=== PATIENT | female | born 1980 | race Caucasian/White ===

== ENCOUNTER → 2021-07-10 07:55 | Outpatient (CLI) | payer OTHER, SELFPAY ==
[2021-07-10 19:08] LABS: SARS-CoV-2 RNA PCR Negative
== END ==
PROVIDERS: PCP Internal Medicine; Visit Provider Internal Medicine
DX: R68.89 Other general symptoms and signs (principal); Z20.822 Contact with and (suspected) exposure to COVID-19
CPT/HCPCS: C9803; U0003; U0005

== ENCOUNTER 2024-05-25 14:42 | Emergency (ER) | payer OTHER, SELFPAY ==
[2024-05-25 14:53] VITALS: BP 103/76; PULSE 87; RESP 16; TEMP 37.7; O2SAT 99
--- NOTE | 2024-05-25 15:09 | ED_ITS ---
HPI - URI/Sore Throat General Chief Complaint: Upper Respiratory Infection Stated Complaint: HEADACHE/HOT & COLD/COUGH/TIGHT CHEST Time Seen by Provider: 05/25/24 15:09 Source: patient, RN notes reviewed and old records reviewed Mode of arrival: ambulatory Limitations: no limitations History of Present Illness HPI Narrative: 43 year old female who presents to express care with complaints of feeling hot and cold, having chills and bad headache with cough with some tightness of chest and body aches since last night.Patient reports that she has taken some Ibuprofen for her headache and body aches. Patient reports that10 year old child did have a lot of coughing last week MD elicited complaint: cough, nasal congestion and other (headache, body aches) Pertinent past history: pneumonia and other (congenital heart defect with repair) Onset (ago): day(s) (since last night) Consistency: progressively worsening Pain scale (0-10): 3 Able to tolerate fluids by mouth: Yes Treatments prior to arrival: ibuprofen Related Data Home Medications ?Medication ?Instructions ?Recorded ?Confirmed ?Last Taken ?Type drospirenone 3 mg-ethinyl 1 tablet PO DAILY 08/23/20 08/23/20 Unknown History estradiol 0.02 mg tablet (ALLIE (28)) Allergies Allergy/AdvReac Type Severity Reaction Status Date / Time No Known Allergies Allergy Unverified 05/25/24 15:20 Review of Systems Review of Systems: CONSTITUTIONAL: Reports malaise, chills, sweats, no known fever. EYES: Denies visual changes, redness, or discharge. ENT: Reports rhinorrhea, congestion, no sinus pain,no otalgia and no sore throat. CARDIOVASCULAR: Denies chest pain, palpitations, or edema. RESPIRATORY: Reports cough.? Denies dyspnea.some tightness in chest with cough GASTROINTESTINAL: Denies abdominal pain, nausea, vomiting, diarrhea SKIN: Denies rash or itching. MUSCULOSKELETAL:Reports myalgia. NEUROLOGIC: Reports headache. All systems reviewed & are unremarkable except as noted in HPI and below [facility] Past Medical History Medical History (Updated 05/26/24 @ 00:03 by Francie Patel) Acute pharyngitis, unspecified Strain of right quadriceps muscle, fascia and tendon, initial encounter Surgical History Surgical History (Updated 05/25/24 @ 15:21 by Suzette Hampton NP) History of open heart surgery repair of congenital heart defect Family History Family History Sibling Patient's brother is in good health Social History Social History (Updated 05/27/24 @ 07:52 by Suzette Hampton NP) Smoking status: Never smoker Alcohol intake: current Alcohol use details: social Substance use type: does not use Living arrangements: with family Gender identity (if verbalized by the patient): Female Comments At time of signature, agree with nursing past medical, surgical, social and family history. There is no relevant family history pertinent to the presenting complaint Exam Narrative: GENERAL: Well-appearing, well-nourished, and in no acute distress. HEAD: Normocephalic EYES: PERRLA, conjunctivae clear ENT: Nares clear, turbinates edematous and erythematous, clear discharge,sinus pressure and headache. Mucous membranes moist. TM pearly travis with dull light reflex bilaterally; no tragal tenderness. Oropharynx erythematous without lesions. Tonsils not enlarged and without exudate, no drooling, no hoarseness, no trismus, uvula midline.post nasal drainage. NECK: Supple. No lymphadenopathy CHEST: Clear to auscultation, breath sounds equal. No wheezing, rhonchi, rales, or stridor. No respiratory distress, speaks in full sentences.cough SAO2 99% on room air HEART: Regular rate and rhythm. No murmur heard. SKIN: Warm, dry, no rash. NEURO: Alert and oriented x3. PSYCH: Normal mood and affect Course Course Emergency Course: Patient is aware of diagnosis, understands and agrees to treatment plan.? Anticipatory guidance given.? Patient agrees to follow-up as directed and is aware of reasons to seek care at the emergency department. Portions of this record may have been created with voice recognition software Level of Care: Express Care Visit Vital Signs Vital signs: Vital Signs Temperature 37.7 C H 05/25/24 14:53 Pulse Rate 87 05/25/24 14:53 Respiratory Rate 16 05/25/24 14:53 Blood Pressure 103/76 05/25/24 14:53 Pulse Oximetry 99 05/25/24 14:53 Temperature 37.7 C H 05/25/24 14:53 Pulse Rate 87 05/25/24 14:53 Respiratory Rate 16 05/25/24 14:53 Blood Pressure 103/76 05/25/24 14:53 Pulse Oximetry 99 05/25/24 14:53 Reviewed MDM - URI/Sore Throat MDM Narrative Medical decision making narrative: Differential diagnosis considered: Mohan virus, strep pharyngitis, allergic rhinitis, upper respiratory tract infection, sinusitis, rhinosinusitis, nasopharyngitis. viral pharyngitis, otitis media, otitis externa, pneumonia, bronchitis, viral cough syndrome, viral syndrome, and influenza.? Exam findings show no acute concerns or changes; patient is non-toxic appearing and is in no distress.? Patient is appropriate for outpatient treatment and follow-up. Differential Diagnosis Differential diagnosis: Likely upper respiratory infection, sinusitis, viral infection, influenza and other (Covid) Medical Records Attestation: I reviewed the patient's medical records. Lab Data Attestation: I reviewed the patient's lab results. Lab results narrative: influenza A negative, Influenza B negative, Covid antigen negative Labs: Lab Results 05/25/24 05/25/24 Range/Units 15:37 15:37 POC Influenza A Ag Negative (Negative) POC Influenza B Ag Negative (Negative) POC SARS CoV-2 Ag Cancelled Negative Critical Care Time Critical Care Time Critical Care Time: No Discharge Plan Discharge Clinical Impression: URI, acute Patient Disposition: Home, Self-Care Condition: Stable Instructions: Antibiotic Form, Upper Respiratory Infection (ED) Additional Instructions: Increase fluids especially juices and water [id number] cough and cold medicine of your choice for your symptoms Zyrtec Claritin or Elva daily heat to the face 20-30 minutes 4-6 times a day for pain Salt water gargles, throat lozenges or throat sprays as desired Antibiotic as directed--finished the medication If your symptoms persist, change or worsen significantly before you can contact your personal physician then please, without delay, go to the emergency department for further evaluation. Follow-up with PCP in 7-10 days or sooner if needed Tylenol or ibuprofen for any fever pain retest for COVID tomorrow Patient Language: [place] Prescriptions: New amoxicillin 875 mg tablet 875 mg PO Q12H Qty: 20 0RF No Action drospirenone-ethinyl estradiol [ALLIE (28)] 3-0.02 mg tablet 1 tablet PO DAILY amoxicillin-pot clavulanate 500-125 mg tablet 1 tablet PO Q8H Qty: 15 0RF Follow-up/Referrals: Cosmo,MD Shadi [Primary Care Provider] - Time of Disposition: 15:46 Quality [place] Coma Scale Eyes: Open Verbal: Oriented and Alert Motor: Follows Commands [place] Coma Total Score: 15
[2024-05-25 15:42] LABS: EDINFLUASCREEN Negative (Negative); EDINFLUBSCREEN Negative (Negative)
[2024-05-26 07:32] LABS: EDCOVIDSCREEN Negative (Negative)
== END 2024-05-25 15:50 | disposition home or self-care (01) ==
PROVIDERS: Emergency Provider Registered Nurse; PCP Internal Medicine
DX: J06.9 Acute upper respiratory infection, unspecified (principal); Z20.822 Contact with and (suspected) exposure to COVID-19
CPT/HCPCS: 87426; 87804; 99213; G0463